=== PATIENT | male | born 1980 | race Caucasian/White ===

== ENCOUNTER 2018-07-14 16:44 | Emergency (ER) | payer BC, SELFPAY ==
--- NOTE | 2018-07-14 17:49 | RAD ---
RIGHT FOOT THREE VIEWS: 07/14/18 COMPARISON: None. HISTORY: Emergency examination, pain. FINDINGS: There is degenerative change involving the first metatarsophalangeal joint with joint space narrowing , subchondral sclerosis and prominent osteophyte formation. There is osteophyte formation associated with the base of the first distal phalanx medially. No acute fracture or dislocation. There is enthesophyte formation at the origin of the plantar aponeurosis. IMPRESSION: Degenerative changes as detailed above. No displaced fracture or dislocation is seen. POS: [facility]
== END 2018-07-14 17:59 | disposition home or self-care (01) ==
LOC: SCSER 16:44
DX: M79.671 Pain in right foot (principal); F41.9 Anxiety disorder, unspecified; F32.9 Major depressive disorder, single episode, unspecified; K21.9 Gastro-esophageal reflux disease without esophagitis; Z79.899 Other long term (current) drug therapy